=== PATIENT | female | born 1970 | race Caucasian/White ===

== ENCOUNTER → 2021-03-24 18:11 | Emergency (ER) | payer SELFPAY ==
[2021-03-24 18:12] VITALS: BP 155/88; PULSE 80; RESP 18; TEMP 36.2; O2SAT 100; BMI 25.0
--- NOTE | 2021-03-24 18:42 | CT_ITS ---
INDICATION: Left greater than right LQ with peritoneal finding -- IV PO Contrast EXAMINATION: CT Abdomen And Pelvis W/ Contrast Injection TECHNIQUE: Helically acquired images were obtained of the abdomen and pelvis after IV contrast. A radiation dose optimization technique was used for this scan. IV Contrast dosage and agent: Oral and amp; IV Gastrografin and amp; 100mL [id number]-[id number] Oral contrast: Yes. COMPARISON: None. FINDINGS: Visualized lung bases: Unremarkable Liver: Unremarkable Gallbladder: Few small intraluminal stones seen. Spleen: Unremarkable Pancreas: Unremarkable Adrenal Glands: Unremarkable Kidneys: 8 mm nonobstructing stone seen in the left lower pole. Vasculature: Mild scattered aortoiliac atherosclerotic calcifications. GI Tract: Unremarkable Lymphadenopathy: None Peritoneum: No ascites. Bladder: Unremarkable Reproductive organs: Unremarkable Bones/Soft tissues: No suspicious osseous or soft tissue lesions CT/Abdomen/Pelvis WITH Contrast IMPRESSION: No acute abnormalities in the abdomen or pelvis. Cholelithiasis. 8 mm nonobstructing left lower pole renal stone. Electronically Signed: Chavez Eisenberg MD at 21:00 EDT Tel , Service support ,
[2021-03-24 19:10] LABS: Absolute Lymphocyte Count 2.85 X10^3/uL (0.83-4.51); Absolute Neutrophil Count 5.9 X10^3/uL (2.0-7.7); Basophil# 0.04 X10^3/uL; Basophil% 0.4 % (0-1); Eosinophil# 0.15 X10^3/uL; Eosinophils% 1.6 % (0-5); Hematocrit 38.3 % (37-47); Hemoglobin 12.8 g/dL (12.0-15.0); Lymphocyte # 2.85 X10^3/ul (0.83-4.51); Mean Corp Hgb Conc 33.4 g/dL (32-36); Mean Corpuscular Hgb 29.9 pg (27.0-32.0); Mean Corpuscular Volume 89.5 fL (81-99); Mean Platelet Vol. 9.5 fl (6.2-12.0); Monocyte# 0.56 X10^3/uL; Monocyte% 5.9 % (0-10); NRBC Flagged by Analyzer 0 % (0-5); Neutrophil # 5.89 X10^3/uL (2.7-7.7); Neutrophil % 61.9 % (47-70); Platelet Count 260 K/mm3 (150-450); RBC Distribution Width CV 12.7 % (11.6-14.6); RBC Distribution Width SD 41.7 fl (35.1-43.9); Red Blood Count 4.28 M/mm3 (4.2-5.4); White Blood Count 9.5 K/mm3 (4.4-11.0)
[2021-03-24 19:10] LABS: Mucous, Urine 0 SEEN /hpf (<or=2+); Red Blood Cells-Urine 0 SEEN /hpf (0-5)
[2021-03-24 19:13] LABS: Color, Urine Yellow (Yellow); Glucose, Dipstick Normal (Normal); Ketone-Dipstick Negative (Negative); Leukocyte Esterase-Dipstick 500 /ul (Negative); Nitrite-Dipstick Negative (Negative); Occult Blood-Urine 150 /ul (Negative); Protein-Dipstick Negative (Negative); Specific Gravity, Urine 1.005 (1.002-1.030); Urine Bilirubin Dipstick Negative (Negative); Urine Clarity Sl. Cloudy (Clear); Urine Urobilinogen Normal (Normal)
[2021-03-24] MEDS: Ondansetron 4 MG/2 ML Vial IV (19:13)
[2021-03-24] MEDS: Morphine 4 MG/ML Syringe IV (19:13)
[2021-03-24] MEDS: 0.9% Normal Saline 1,000 ML 1000 ML IV (19:13)
[2021-03-24 19:23] LABS: Anion Gap 5 (5-15); BUN 9 mg/dL (7-18); BUN/Creat Ratio 12.5 RATIO (10-20); Calcium,Total 8.8 mg/dL (8.5-10.1); Chloride 108 mmol/L (98-107); Creatinine, Serum 0.72 mg/dL (0.55-1.02); EST Glomerular Filtration Rate 91 mL/min (>60); Est Glom Filt Rate - Afr Amer 110 mL/min (>60); Estimated Creatinine Clearance 89.89 ml/min; Glucose 95 mg/dL (74-106); Potassium 3.6 mmol/L (3.5-5.1); Sodium Level 141 mmol/L (136-145)
[2021-03-24 19:35] LABS: Squamous Epithelial Cells - UA 0-5 SEEN /hpf (5-10); White Blood Cells 10-25 SEEN /hpf (0-5)
[2021-03-24 19:36] LABS: Bacteria 2+ /hpf (None Seen)
[2021-03-24 21:29] VITALS: BP 134/86; PULSE 63; RESP 15; O2SAT 100
--- NOTE | 2021-03-24 22:19 | ED.VIS.GI ---
HPI HPI - GI History of Present Illness Chief Complaint: Abd Pain Detail of Chief Complaint: Patient presents because of right and left lower quadrant abdominal pain Abdominal Pain/Flank Pain Onset: Today Context: Sudden Onset Timing: Continuous Quality: - (Pain) Location: RLQ and LLQ Current Severity: Moderate Maximum Severity: Severe Worsened by: Movement Relieved by: Nothing Nausea/Vomiting/Emesis GI Symptom: Positive for Nausea; Negative for Vomiting Onset: Today Diarrhea/Melena/Hematochezia GI Symptom: Negative for Diarrhea, Melena and Hematochezia Associated Symptoms Associated Symptoms: Negative for Dysuria, Frequency, Hematuria and Urgency Narrative Narrative: Patient is a 50-year-old woman who presents with lower abdominal pain left greater than right. She denies history of diverticulosis or diverticulitis. She has not had a colonoscopy. She denies fever, chills night sweats. She states her appetite has not been good. She denies respiratory symptoms. She denies vaginal bleeding. She is status post hysterectomy. She denies history of trauma. She denies rash. She denies history of renal ureterolithiasis. Prior similar symptoms: No Recent Illness/Hospitalization: No PFSH PFSH Home Medications cephalexin 500 mg PO Q6 #28 capsule 03/24/21 [Rx Last Taken Unknown] Allergy/AdvReac Type Severity Reaction Status Date / Time No Known Allergies Allergy Verified 03/24/21 18:15 Social History Smoking Status: Current some day smoker tobacco type: cigarettes ROS ROS ED Constitutional Constitutional ED: Denies chills, fever(s), subjective or sweats ENT ENT ED: Denies ear pain, rhinorrhea or sore throat Cardiovascular Cardiovascular: Denies chest pain or palpitations Respiratory/Chest Respiratory/Chest: Denies cough, dyspnea or dyspnea on exertion Gastrointestinal Gastrointestinal: Reports abdominal pain and nausea; Denies constipation, diarrhea, melena or vomiting Genitourinary Genitourinary ED: Denies dysuria, hematuria or urinary frequency Musculoskeletal Musculoskeletal: Denies arthralgias, back pain, myalgias or neck pain Integumentary Denies abscess, Abrasions or rash Neurologic Neurologic: Denies headache(s), paresthesias or weakness Endocrine Endocrinology: Denies polydipsia, polyphagia or polyuria Hematologic/Lymphatic Hematologic/Lymphatic: Denies easy bleeding or easy bruising EXAM Physical Exam Const Vital Signs: 03/24/21 18:12 03/24/21 21:29 Temperature 97.2 F L Temperature Source Temporal Pulse Rate 80 63 Respiratory Rate 18 15 Blood Pressure 155/88 H 134/86 H Blood Pressure Mean 110 102 Pulse Ox 100 100 Oxygen Delivery Method Room Air Room Air Positive well nourished and well developed General Appearance ED: well developed and other Patient appears uncomfortable holding her left side. HEENT Reports TM's clear and moist mucous membranes normocephalic and atraumatic Tympanic Membrane ED: Yes TM's clear Eyes PERRL and EOMs intact bilaterally General Eye ED: Negative for pale conjunctiva or scleral icterus Neck no lymphadenopathy, supple and no JVD Resp normal respiratory effort and clear to auscultation bilaterally Cardio regular rate, regular rhythm, S1 normal heart sound, S2 normal heart sound and no murmurs GI no masses; Negative for non-tender or non-distended Auscultation: hypoactive bowel sounds; Negative for normoactive bowel sounds Palpation: soft, tender LLQ and RLQ and guarding LLQ; Negative for rigid, hepatomegaly, splenomegaly, mass, pulsatile mass or rebound tenderness present Back/Spine no CVA tenderness Cervical Spine: Negative for cervical spine tenderness Thoracic Spine / Upper Back: Negative for thoracic spinal tenderness Lumbar Spine / Lower Back: Negative for lumbar spinal tenderness Extremity Negative for full ROM General Extremety ED: Negative for edema or tenderness General Extremity: Negative for edema Neuro CN's II-XII intact bilaterally, moves all extremities and no sensory deficits noted Sensorium / Orientation: alert, oriented to person, oriented to place and oriented to time Motor Exam: strength 5/5 throughout Psych mental status grossly normal and thought process normal Skin no wounds Lesions: no lesions Rashes: no rashes MDM MDM MDM Narrative Medical decision making narrative: Differential diagnosis includes atypical presentation sinusitis, diverticulitis, ureterolithiasis, urinary tract infection, pyelonephritis Lab Data Attestation: I reviewed the patient's lab results. Lab results narrative: CBC is normal. Basic metabolic panel is normal. Urine is consistent with a urinary tract infection. Macro was positive for leukoesterase and blood. Micro was consistent for pyuria with 2+ bacteria and is a good specimen. Lactate is normal. Patient was treated for acute cystitis. Labs: Laboratory Results - last 24 hr 03/24/21 03/24/21 03/24/21 18:50 18:55 18:55 WBC 9.5 RBC 4.28 Hgb 12.8 Hct 38.3 MCV 89.5 MCH 29.9 MCHC 33.4 RDW Std Deviation 41.7 RDW Coeff of Gaetano 12.7 Plt Count 260 MPV 9.5 Immature Gran % (Auto) 0.200 Neut % (Auto) 61.9 Lymph % (Auto) 30.0 [place] % (Auto) 5.9 Eos % (Auto) 1.6 Baso % (Auto) 0.4 Absolute Neuts (auto) 5.9 Absolute Lymphs (auto) 2.85 Nucleated RBC % 0 Sodium 141 Potassium 3.6 Chloride 108 H Carbon Dioxide 28.0 Anion Gap 5 BUN 9 Creatinine 0.72 Estim Creat Clear Calc 89.89 Est GFR (MDRD) Af Amer 110 Est GFR (MDRD) Non-Af 91 BUN/Creatinine Ratio 12.5 Glucose 95 Lactic Acid Calcium 8.8 Urine Color Yellow Urine Clarity Sl. Cloudy Urine pH 7.0 Ur Specific [place] 1.005 Urine Protein Negative Urine Glucose (UA) Normal Urine Ketones Negative Urine Occult Blood 150 H Urine Nitrite Negative Urine Bilirubin Negative Urine Urobilinogen Normal Ur Leukocyte Esterase 500 H Urine RBC 0 SEEN Urine WBC 10-25 SEEN Ur Squamous Epith Cells 0-5 SEEN Urine Bacteria 2+ Urine Mucus 0 SEEN 03/24/21 18:55 WBC RBC Hgb Hct MCV MCH MCHC RDW Std Deviation RDW Coeff of Gaetano Plt Count MPV Immature Gran % (Auto) Neut % (Auto) Lymph % (Auto) [place] % (Auto) Eos % (Auto) Baso % (Auto) Absolute Neuts (auto) Absolute Lymphs (auto) Nucleated RBC % Sodium Potassium Chloride Carbon Dioxide Anion Gap BUN Creatinine Estim Creat Clear Calc Est GFR (MDRD) Af Amer Est GFR (MDRD) Non-Af BUN/Creatinine Ratio Glucose Lactic Acid 1.0 Calcium Urine Color Urine Clarity Urine pH Ur Specific [place] Urine Protein Urine Glucose (UA) Urine Ketones Urine Occult Blood Urine Nitrite Urine Bilirubin Urine Urobilinogen Ur Leukocyte Esterase Urine RBC Urine WBC Ur Squamous Epith Cells Urine Bacteria Urine Mucus Radiography Diagnostic Testing: Radiology Impression Abdomen/Pelvis CT 03/24/21 18:42 IMPRESSION: No acute abnormalities in the abdomen or pelvis. Cholelithiasis. 8 mm nonobstructing left lower pole renal stone. Electronically Signed: Chavez Eisenberg MD at 21:00 EDT Tel , Service support , The CT was reviewed and interpretation was read and agree. Discharge Plan Triage Chief Complaint: Abd Pain ED Provider: George Ulrich Dx/Rx/DC Orders Clinical Impression: Cystitis Instructions: ED CYSTITIS Female Adult Prescriptions: New cephalexin [cephalexin] 500 MG capsule 500 mg PO Q6 Qty: 28 RF: 0 Primary Care Provider: Kofi Moreau Referrals: Kofi Moreau MD [Primary Care Provider] - 3-5 Days if not improving Disposition Disposition: Home, Self Care
[2021-03-24] MEDS: Cephalexin 250 MG Capsule 500 MG PO (22:30)
[2021-03-24 22:31] VITALS: BP 124/83; PULSE 73; RESP 17; O2SAT 100
== END | disposition home or self-care (01) ==
PROVIDERS: Emergency Provider Emergency Medicine; PCP Family Medicine
DX: N30.90 Cystitis, unspecified without hematuria (principal); N20.0 Calculus of kidney; K80.20 Calculus of gallbladder without cholecystitis without obstruction; F17.210 Nicotine dependence, cigarettes, uncomplicated; Z90.710 Acquired absence of both cervix and uterus
CPT/HCPCS: 74177; 80048; 81001; 83605; 85025; 87077; 87086; 87088; 87186; 96361; 96374; 96375; 99284; Q9967; A4216; J2405

== ENCOUNTER 2021-09-03 04:56 | Observation (INO) | payer SELFPAY ==
[2021-09-03] VITALS (9 sets, daily range): BP systolic 93–141; BP diastolic 61–92; PULSE 52–69; RESP 15–16; TEMP 36.3–36.8; O2SAT 100; BMI 26.3; BMI 26.4
--- NOTE | 2021-09-03 05:17 | CT_ITS ---
STUDY: CT ABDOMEN AND PELVIS WITHOUT CONTRAST REASON FOR EXAM: Female, 51 years old. Pain: Kidney stone on left RADIATION DOSAGE (If Supplied By Facility): CTDIvol = ( 6.78 ) mGy, DLP = ( 352.43 ) mGycm TECHNIQUE: Transaxial images were obtained from the dome of the diaphragm to the symphysis pubis without oral contrast, and without intravenous contrast. Sagittal and coronal images were reconstructed. Individualized dose optimization techniques were used for this CT. COMPARISON: None. FINDINGS: The visualized lung bases are unremarkable. The visualized portions of the heart are within normal limits. Normal liver. There is a solitary gallstone. Normal spleen. Normal pancreas. Normal bilateral adrenal glands. Normal right kidney. There is a 7 mm calculus at the left ureteropelvic junction with mild left hydronephrosis. Normal visualized stomach. Normal small intestine. Normal colon. The appendix is visualized and appears normal. Is a large amount of retained stool throughout the colon. Correlate for constipation. There is atherosclerotic calcification of the abdominal aorta, without a demonstrated aneurysm. Normal inferior vena cava. Normal retroperitoneum. Normal urinary bladder. Normal abdominal wall. Normal osseous structures. CT/Abdomen/Pelvis without Cont IMPRESSION: 7 mm calculus within the left ureteropelvic junction causing mild left hydronephrosis. Electronically Signed: Chavez Mason MD at 6:09 EST ,
--- NOTE | 2021-09-03 05:18 | ED.VIS.GI ---
HPI HPI - GI History of Present Illness Chief Complaint: Flank Pain Informant: patient Abdominal Pain/Flank Pain Onset: Days Context: Gradual Onset Timing: Continuous Location: Left Flank Current Severity: Mild Maximum Severity: Moderate Worsened by: Nothing Relieved by: Nothing Nausea/Vomiting/Emesis GI Symptom: Positive for Nausea and Vomiting Onset: Today Severity: Mild Diarrhea/Melena/Hematochezia GI Symptom: Negative for Diarrhea, Melena and Hematochezia Associated Symptoms Associated Symptoms: Negative for Dysuria, Frequency, Hematuria and Urgency Narrative Narrative: 51-year-old female history of kidney stones and prior total hysterectomy. She was vacationing in [place]. Said on Wednesday she started getting left flank pain. She was seen in an emergency department on Wednesday around [facility] and was diagnosed with a 7 mm stone with hydronephrosis. They were unable to admit her so they basically gave her pain medication and told to follow-up with emergency department in her hometown. She states his left flank pain. She has had associated nausea and vomiting. No dysuria. No fever. She has had kidney stones before. She is never needed any of them surgically removed. Unfortunately the prior facility did not send any of her labs or CAT scan results with her. They did start her on Cipro, Toradol, a narcotic pain medication and Flomax. Prior similar symptoms: Yes Recent Illness/Hospitalization: No PFSH PFSH Allergy/AdvReac Type Severity Reaction Status Date / Time No Known Allergies Allergy Verified 09/03/21 05:01 Social History Smoking Status: Current some day smoker tobacco type: cigarettes ROS ROS ED ROS Narrative Left flank pain. Nausea and vomiting. Review of Systems ROS Unobtainable: Denies due to encephalopathy Constitutional Constitutional ED: Denies chills or fever(s) ENT ENT ED: Denies ear pain or sore throat Cardiovascular Cardiovascular: Denies chest pain Respiratory/Chest Respiratory/Chest: Denies cough or dyspnea Gastrointestinal Gastrointestinal: Reports abdominal pain, nausea and vomiting; Denies constipation, diarrhea or melena Genitourinary Genitourinary ED: Denies dysuria or hematuria Musculoskeletal Musculoskeletal: Denies myalgias Integumentary Denies rash Neurologic Neurologic: Denies headache(s) Psychiatric Psychiatric: Denies depression Endocrine Endocrinology: Denies polyuria Hematologic/Lymphatic Hematologic/Lymphatic: Denies easy bruising Allergic/Immunologic Allergic/Immunologic ED: Denies urticaria EXAM Physical Exam Narrative Exam Narrative: 51-year-old female no acute distress. Vital signs stable afebrile. H EENT exam unremarkable. Neck nontender. Lungs clear to auscultation bilaterally. Heart regular rhythm rate about 70 no murmur. Abdomen soft, nontender, nondistended, normal bowel sounds without peritoneal signs. There is no reproducible silvana tenderness. Back nontender. She has flank pain but is not reproducibly tender. Moving all 4 extremities. Nontender no edema. Neurologically awake and alert. Const Vital Signs: 09/03/21 04:57 Temperature 98.2 F Temperature Source Temporal Pulse Rate 69 Respiratory Rate 16 Blood Pressure 141/92 H Blood Pressure Mean 108 Pulse Ox 100 Oxygen Delivery Method Room Air Positive well nourished and well developed; Negative for obese, cachectic, contractures or unkempt General Appearance ED: well developed and NAD; Negative for unkempt, cachectic, contractures or pallor Nutritional Appearance: Negative for cachectic or obese HEENT Reports moist mucous membranes normocephalic and atraumatic Eyes PERRL and EOMs intact bilaterally General Eye ED: Negative for pale conjunctiva or scleral icterus Neck no lymphadenopathy, supple and no JVD General: Negative for tenderness Resp normal respiratory effort and clear to auscultation bilaterally Auscultation: Negative for rales, rhonchi or wheezes Cardio regular rate, regular rhythm, S1 normal heart sound, S2 normal heart sound and no murmurs GI non-tender, non-distended and no masses Inspection: Negative for abdominal distention Auscultation: normoactive bowel sounds Palpation: soft; Negative for tender, guarding, rigid or rebound tenderness present Back/Spine no CVA tenderness General Back: Negative for CVA tenderness Cervical Spine: Negative for cervical spine tenderness Thoracic Spine / Upper Back: Negative for thoracic spinal tenderness Lumbar Spine / Lower Back: Negative for lumbar spinal tenderness Extremity full ROM General Extremety ED: Negative for edema or tenderness General Extremity: Negative for edema Neuro moves all extremities Sensorium / Orientation: alert, oriented to person, oriented to place and oriented to time; Negative for orientation impaired, confused, lethargic or stuporous Motor Exam: strength 5/5 throughout Psych mental status grossly normal and thought process normal Appearance: Negative for unkempt Attitude: No agitated Mood & Affect: Negative for depressed, anxious or tearful Skin no wounds General Skin Exam: Negative for jaundice or pallor Lesions: no lesions Rashes: no rashes MDM MDM MDM Narrative Medical decision making narrative: Middle-aged female left flank pain from a kidney stone that was reportedly diagnosed in [place] in the last 48 hours. Having recurrent pain. CAT scan labs are being obtained. She will be treated with Dilaudid, Zofran and Toradol. Repeat exam patient is doing well at 6:21 AM. Pain is much improved after the medications. She had I went over all of her test results. Her pain initially started Wednesday at noon this is a very proximal stone and 7 mm I do not think is going to pass. I discussed with her options of outpatient follow-up with urology versus inpatient. She states I just wanted out. I will speak to urology entry level installation technician to determine a plan. Lab Data Attestation: I reviewed the patient's lab results. Lab results narrative: CBC unremarkable. White count 9.1. H&H of 12 and 36. Normal platelets. Chemistries unremarkable gap of 5 BUN of 14 creatinine of 1. Glucose 86. UA showed no whites or reds. 1+ bacteria. On the macro there was 50 occult blood no nitrates. No infection. CT flank shows a left 7 mm UPJ stone with mild hydronephrosis. Labs: Laboratory Results - last 24 hr 09/03/21 09/03/21 09/03/21 05:00 05:00 05:25 WBC 9.1 RBC 4.03 L Hgb 12.1 Hct 36.3 L MCV 90.1 MCH 30.0 MCHC 33.3 RDW Std Deviation 42.5 RDW Coeff of Gaetano 12.8 Plt Count 231 MPV 9.8 Immature Gran % (Auto) 0.200 Neut % (Auto) 73.3 H Lymph % (Auto) 16.8 L [place] % (Auto) 6.9 Eos % (Auto) 2.5 Baso % (Auto) 0.3 Absolute Neuts (auto) 6.7 Absolute Lymphs (auto) 1.54 Nucleated RBC % 0 Sodium 140 Potassium 4.0 Chloride 109 H Carbon Dioxide 26.0 Anion Gap 5 BUN 14 Creatinine 1.06 H Estim Creat Clear Calc 60.37 Est GFR (MDRD) Af Amer 70 Est GFR (MDRD) Non-Af 58 L BUN/Creatinine Ratio 13.2 Glucose 86 Calcium 8.5 Urine Color Yellow Urine Clarity Clear Urine pH 6.0 Ur Specific [place] 1.015 Urine Protein Negative Urine Glucose (UA) Normal Urine Ketones Negative Urine Occult Blood 50 H Urine Nitrite Negative Urine Bilirubin Negative Urine Urobilinogen Normal Ur Leukocyte Esterase Negative Urine RBC 0-5 SEEN Urine WBC 0-5 SEEN Ur Squamous Epith Cells 0-5 SEEN Urine Bacteria 1+ Urine Mucus 0 SEEN Radiography Diagnostic Testing: Clinical Impression(s) from Imaging Studies Abdomen/Pelvis CT 09/03/21 05:17 IMPRESSION: 7 mm calculus within the left ureteropelvic junction causing mild left hydronephrosis. Electronically Signed: Chavez Mason MD at 6:09 EST Reading Location ID and State: [facility] / [place] Tel , Service support , Discharge Plan Triage Chief Complaint: Flank Pain ED Provider: Edilberto Ivan Dx/Rx/DC Orders Clinical Impression: Calculus of proximal left ureter, Acute flank pain, Hydronephrosis Primary Care Provider: Care Physician,No Primary Referrals: Care Physician,No Primary [Primary Care Provider] - Disposition Disposition: Acute Care [facility]
[2021-09-03 05:27] LABS: Absolute Lymphocyte Count 1.54 X10^3/uL (0.83-4.51); Absolute Neutrophil Count 6.7 X10^3/uL (2.0-7.7); Basophil# 0.03 X10^3/uL; Basophil% 0.3 % (0-1); Eosinophil# 0.23 X10^3/uL; Eosinophils% 2.5 % (0-5); Hematocrit 36.3 % (37-47); Hemoglobin 12.1 g/dL (12.0-15.0); Lymphocyte # 1.54 X10^3/ul (0.83-4.51); Lymphocyte % 16.8 % (19-41); Mean Corp Hgb Conc 33.3 g/dL (32-36); Mean Corpuscular Volume 90.1 fL (81-99); Mean Platelet Vol. 9.8 fl (6.2-12.0); Monocyte# 0.63 X10^3/uL; Monocyte% 6.9 % (0-10); NRBC Flagged by Analyzer 0 % (0-5); Neutrophil # 6.69 X10^3/uL (2.7-7.7); Neutrophil % 73.3 % (47-70); Platelet Count 231 K/mm3 (150-450); RBC Distribution Width CV 12.8 % (11.6-14.6); RBC Distribution Width SD 42.5 fl (35.1-43.9); Red Blood Count 4.03 M/mm3 (4.2-5.4); White Blood Count 9.1 K/mm3 (4.4-11.0)
[2021-09-03 05:30] LABS: Mucous, Urine 0 SEEN /hpf (<or=2+)
[2021-09-03 05:31] LABS: Color, Urine Yellow (Yellow); Glucose, Dipstick Normal (Normal); Ketone-Dipstick Negative (Negative); Leukocyte Esterase-Dipstick Negative /ul (Negative); Nitrite-Dipstick Negative (Negative); Occult Blood-Urine 50 /ul (Negative); Protein-Dipstick Negative (Negative); Specific Gravity, Urine 1.015 (1.002-1.030); Urine Bilirubin Dipstick Negative (Negative); Urine Clarity Clear (Clear); Urine Urobilinogen Normal (Normal)
[2021-09-03] MEDS: Ketorolac 15 MG/ML Vial IV (05:35)
[2021-09-03] MEDS: Ondansetron 4 MG/2 ML Vial IV (05:35)
[2021-09-03] MEDS: HYDROmorphone 1 MG/ML Syringe IV (05:35)
[2021-09-03 05:39] LABS: Bacteria 1+ /hpf (None Seen); Red Blood Cells-Urine 0-5 SEEN /hpf (0-5); Squamous Epithelial Cells - UA 0-5 SEEN /hpf (5-10); White Blood Cells 0-5 SEEN /hpf (0-5)
[2021-09-03 05:42] LABS: Anion Gap 5 (5-15); BUN 14 mg/dL (7-18); BUN/Creat Ratio 13.2 RATIO (10-20); Calcium,Total 8.5 mg/dL (8.5-10.1); Chloride 109 mmol/L (98-107); Creatinine, Serum 1.06 mg/dL (0.55-1.02); EST Glomerular Filtration Rate 58 mL/min (>60); Est Glom Filt Rate - Afr Amer 70 mL/min (>60); Estimated Creatinine Clearance 60.37 ml/min; Glucose 86 mg/dL (74-106); Sodium Level 140 mmol/L (136-145)
--- NOTE | 2021-09-03 07:41 | PCM.HP.STD ---
HPI - General HPI Narrative HOWIE BHAT, is a 51 F who presents with an obstructing 7 - 8 mm stone in the proximal left ureter and severe pain she is now back in the emergency room for the second time so she will be admitted to the hospital for stent placement. PFSH Allergy/AdvReac Type Severity Reaction Status Date / Time No Known Allergies Allergy Verified 09/03/21 05:01 Social History Smoking Status: Current some day smoker tobacco type: cigarettes ROS Constitutional Constitutional: Denies chills, fever(s) or malaise Eyes Eyes: Denies blurry vision or change in vision ENT HEENT: Reports none Cardiovascular Cardiovascular: Denies chest pain or palpitations Respiratory/Chest Respiratory/Chest: Denies cough or shortness of breath with exertion Gastrointestinal Gastrointestinal: Denies abdominal pain, constipation or diarrhea Musculoskeletal Musculoskeletal: Denies back pain, joint stiffness or joint swelling Integumentary Integumentary: Denies dry skin, jaundice, lesions or rash Neurologic Neurologic: Denies confusion, syncope or weakness Psychiatric Psychiatric: Reports none; Denies anxiety or depression Endocrine Endocrinology: Denies excessive sweating, fatigue or flushing Hematologic/Lymphatic Hematologic/Lymphatic: Denies anemia, easy bleeding or easy bruising Vital Signs Vital Signs Vital Signs: 09/03/21 04:57 09/03/21 07:30 Temperature 98.2 F 98.2 F Temperature Source Temporal Temporal Pulse Rate 69 69 Respiratory Rate 16 16 Blood Pressure 141/92 H 141/92 H Blood Pressure Mean 108 108 Pulse Ox 100 100 Oxygen Delivery Method Room Air Room Air Weight Weight: 76.2 kg Body Mass Index (BMI) 26.3 Physical Exam Const alert and oriented x3 General Appearance: cooperative HEENT normocephalic, head/scalp atraumatic, EAC's normal and TM's normal bilaterally Eyes PERRL and EOMs intact bilaterally Pupil: sluggish Neck no lymphadenopathy, supple and no JVD General: trachea midline Lymph Lymphatic: no lymphadenopathy noted, lymphedema and lymphadenopathy Resp normal respiratory effort, normal air movement and clear to auscultation bilaterally Cardio regular rate, regular rhythm and peripheral pulses 2+ throughout GI soft to palpation, non-tender and non-distended Extremity normal capillary refill and no clubbing, cyanosis or edema General Extremity: no tenderness to palpation of joints or extremities Skin no rashes or lesions noted General Skin Exam: turgor normal Lesions: no lesions Rashes: no rashes Neuro CN's II-XII intact bilaterally Speech: speech normal Motor Exam: strength 5/5 throughout; Negative for general weakness Psych thought process normal, cooperative and affect normal Appearance: appropriate Results Lab / Micro Data Result Diagrams: 09/03/21 05:00 09/03/21 05:00 Labs: Laboratory Results - last 24 hr 09/03/21 05:00: WBC 9.1, RBC 4.03 L, Hgb 12.1, Hct 36.3 L, MCV 90.1, MCH 30.0, MCHC 33.3, RDW Std Deviation 42.5, RDW Coeff of Gaetano 12.8, Plt Count 231, MPV 9.8, Immature Gran % (Auto) 0.200, Neut % (Auto) 73.3 H, Lymph % (Auto) 16.8 L, [place] % (Auto) 6.9, Eos % (Auto) 2.5, Baso % (Auto) 0.3, Absolute Neuts (auto) 6.7, Absolute Lymphs (auto) 1.54, Nucleated RBC % 0 09/03/21 05:00: Sodium 140, Potassium 4.0, Chloride 109 H, Carbon Dioxide 26.0, Anion Gap 5, BUN 14, Creatinine 1.06 H, Estim Creat Clear Calc 60.37, Est GFR (MDRD) Af Amer 70, Est GFR (MDRD) Non-Af 58 L, BUN/Creatinine Ratio 13.2, Glucose 86, Calcium 8.5 09/03/21 05:25: Urine Color Yellow, Urine Clarity Clear, Urine pH 6.0, Ur Specific [place] 1.015, Urine Protein Negative, Urine Glucose (UA) Normal, Urine Ketones Negative, Urine Occult Blood 50 H, Urine Nitrite Negative, Urine Bilirubin Negative, Urine Urobilinogen Normal, Ur Leukocyte Esterase Negative, Urine RBC 0-5 SEEN, Urine WBC 0-5 SEEN, Ur Squamous Epith Cells 0-5 SEEN, Urine Bacteria 1+, Urine Mucus 0 SEEN Radiology Impression Abdomen/Pelvis CT 09/03/21 05:17 IMPRESSION: 7 mm calculus within the left ureteropelvic junction causing mild left hydronephrosis. Electronically Signed: Chavez Mason MD at 6:09 EST , Assessment & Plan Assessment/Plan (1) Calculus of proximal left ureter: PLAN: Plan for stent placement today. (2) Acute flank pain: PLAN: Control pain with medications (3) Hydronephrosis: PLAN: Hydronephrosis should resolve after stent.
[2021-09-03] MEDS: 0.9% Normal Saline 1,000 ML 150 ML IV ×2 (08:48→15:55)
--- NOTE | 2021-09-03 14:20 | NURSING ---
Pt to surgery via OR tech
--- NOTE | 2021-09-03 15:44 | OP.PCM_ITS ---
Report of Operation Date of Procedure: 09/03/21 Pre-Operative Diagnosis: Left obstructing kidney stone Post-Operative Diagnosis: The same Surgery/Procedure Performed:: Cystoscopy and left stent placement Description of Surgical Findings:: Patient was taken back to the operating room after induction of general anesthesia, the patient was placed in dorsolithotomy position. The urethra and genitals were prepped and draped in usual sterile fashion. Using a 21 [place]kin[place] rigid cystourethroscope the entire length of the urethra was normal then went into the bladder. Identified the trigone the left and right ureteral orifice. I then cannulated the left orifice and advanced a wire up into the kidney. I then backloaded a 5 Burkinan open ended catheter over the wire and injected contrast to delineate the anatomy. I advanced a wire up i nto the kidney and over the 0.038 glidewire I advanced a 6 [place] by 26 cm double pigtail stent. I then pulled the 0.038 Glidewire off and the stent coiled in the kidney bladder good position. The bladder was then drained. We confirmed the position of the stent by fluoroscopy. Patient anesthetic was reversed and was taken back to the PACU in good condition. Surgeon: lavelle Type of Anesthesia: General Drains: stent left side Admit VTE Documentation VTE Present on Admission: No VTE Mechan Device Prophylaxis: SCD's VTE Pharm Prophylaxis ordered?: No
--- NOTE | 2021-09-03 15:44 | PCM.DC ---
Discharge Instructions Diet Discharge Diet: No restrictions Dressing / Incision Call your doctor if your incision/area has: Continuous Slow Oozing, Increased Pain/ Swelling, Increased Redness and Foul Smelling Discharge Call your doctor if you observe: Fever of 101 or Higher, Numbness or Tingling, Shortness of breath, Dizziness, Calf discomfort and Uncontrolled pain Follow Up Care Please Follow Up With: Oskar Covarrubias MD Test Results: Test results from this visit will be discussed in further detail at your follow-up appointment, if applicable. call [phone] to schedule surgery for shockwave lithotripsy Discharge Plan Admission Admit Date/Time: 09/03/21 07:37 Primary Reason for Your Visit: left kidney stone Attending Provider: Oskar Covarrubias Primary Care Provider: Care Physician,No Primary Instructions Patient Instructions: Having a Ureteral Stent, Kidney Stone (Urine) Discharge Orders/Prescriptions Prescriptions: New ciprofloxacin HCl [Cipro] 500 mg tablet 500 mg PO BID Qty: 6 RF: 0 oxycodone-acetaminophen 5-325 mg tablet 1 tab PO Q6H PRN (Reason: pain) 7 Days Qty: 20 RF: 0 Referrals / Follow Up: Oskar Covarrubias MD [STAFF PHYSICIAN] - Care Physician,No Primary [Primary Care Provider] - Disposition Discharge Orders: Discharge Patient (Routine); Ordered 09/03/21 Ordered By: Dr. Oskar Covarrubias
== END 2021-09-03 15:43 ==
LOC: ED 07:36 → PCU 08:03
PROVIDERS: Admitting Provider Urology; Emergency Provider Emergency Medicine; Visit Provider Urology
PROC: (CPT 52332; principal; 2021-09-03 14:20)
DX: N13.2 Hydronephrosis with renal and ureteral calculous obstruction (principal); F17.210 Nicotine dependence, cigarettes, uncomplicated
CPT/HCPCS: 52332; 74176; 76000; 80048; 81001; 85025; 87426; 96374; 96375; 97802; 99218; 99283; 99406; J7030; A4216; C1769; C2617; G0378; J2405

== ENCOUNTER 2021-10-08 05:47 | Day surgery (SDC) | payer SELFPAY ==
--- NOTE | 2021-10-08 05:59 | RAD_ITS ---
EXAM: XR ABDOMEN, 1 VIEW : 1970 CLINICAL INDICATION: preop TECHNIQUE: Frontal supine view of the abdomen/pelvis. This report was created using [employer] report generation technology. COMPARISON: None. FINDINGS: LOWER THORAX: No acute pathology. GASTROINTESTINAL TRACT: Moderate amount of stool in the colon. Non-obstructive. No bowel or stomach distention. ORGANS: There is a 7 mm stone in the expected location of the lower pole collecting system of the left kidney. No organomegaly. BONES/JOINTS: No acute pathology. SOFT TISSUES: No acute pathology. TUBES, LINES AND DEVICES: Left double-J ureteral stent in place. RAD/Abdomen Single View IMPRESSION: 1. There is a 7 mm stone in the expected location of the lower pole collecting system of the left kidney. 2. Left double-J ureteral stent in place. No stones identified along the course of the stent. at 0622 Reported and signed by: Stephane Middleton MD Electronically Signed: Stephane Middleton MD at 6:22 EST ,
[2021-10-08 06:33] VITALS: BP 108/60; PULSE 61; RESP 16; TEMP 36.9; O2SAT 100; BMI 26.6
[2021-10-08] MEDS: Lactated Ringers 1,000 ML 15 ML IV (06:45)
[2021-10-08] MEDS: Cefazolin 2 GM in 0.9% Normal Saline 100 ML IV (08:00)
--- NOTE | 2021-10-08 08:12 | DCINST_ITS ---
Discharge Instructions Diet Discharge Diet: No restrictions Activity Discharge Activity: Return to Normal Activity and May Not Drive (while taking narcotic pain medications.) Dressing / Incision Call your doctor if you observe: Fever of 101 or Higher Follow Up Care Please Follow Up With: Oskar Covarrubias MD When: Call [phone] for an appointment Test Results: Test results from this visit will be discussed in further detail at your follow-up appointment, if applicable. Discharge Plan Admission Primary Reason for Your Visit: kidney stone Attending Provider: Oskar Covarrubias Primary Care Provider: Care PhysicianBlanca Primary Discharge Orders/Prescriptions Prescriptions: New ciprofloxacin HCl [Cipro] 500 mg tablet 500 mg PO BID Qty: 6 RF: 0 oxycodone-acetaminophen 5-325 mg tablet 1 tab PO Q6H PRN (Reason: pain) 7 Days Qty: 14 RF: 0 Other Ambulatory Orders: COVID 19 AG RAPID (RN COLLECT) (Routine) Timeframe: [id number] Facility: [facility] - Location: Laboratory Ordered By: Dana Perez Referrals / Follow Up: Oskar Covarrubias MD [STAFF PHYSICIAN] - Care Physician,No Primary [Primary Care Provider] - Disposition Disposition (needs filled in before D/C Order can be placed): Home, Self Care
--- NOTE | 2021-10-08 08:12 | PCM.HP.STD ---
HPI - General HPI Narrative HOWIE BHAT, is a 51 F who presents for treatment of left kidney stone with ESWL PFSH Medical History History of edema Kidney stone Leg cramps Smoker Home Medications ciprofloxacin HCl [Cipro] 500 mg PO BID #6 tab 10/08/21 [Rx Last Taken Unknown] oxycodone-acetaminophen 1 tab PO Q6H PRN 7 Days #14 tab 10/08/21 [Rx Last Taken Unknown] Allergy/AdvReac Type Severity Reaction Status Date / Time No Known Allergies Allergy Verified 09/22/21 16:16 Surgical History (Updated 09/22/21 @ 16:18 by Naomie Love) History of cystoscopy History of hysterectomy Social History Smoking Status: Current some day smoker tobacco type: cigarettes Vital Signs Vital Signs Vital Signs: 10/08/21 06:33 Temperature 98.4 F Temperature Source Temporal Pulse Rate 61 Respiratory Rate 16 Respiratory Pattern Normal Blood Pressure 108/60 Blood Pressure Mean 76 Blood Pressure Source Monitor Blood Pressure Position Semi-Fowlers Blood Pressure Location Left Arm Pulse Ox 100 Weight Weight: 77 kg Body Mass Index (BMI) 26.6 Results Lab / Micro Data Micro: Microbiology 10/08/21 06:20 Interface Orders SARS-CoV-2 Antigen (Rapid) - Final Radiology Impression KUB X-Ray 10/08/21 05:59 IMPRESSION: 1. There is a 7 mm stone in the expected location of the lower pole collecting system of the left kidney. 2. Left double-J ureteral stent in place. No stones identified along the course of the stent. at 0622 Reported and signed by: Stephane Middleton MD Electronically Signed: Stephane Middleton MD at 6:22 EST ,
--- NOTE | 2021-10-08 08:46 | OP.PCM_ITS ---
Report of Operation Date of Procedure: 10/08/21 Pre-Operative Diagnosis: Left kidney stone status post stent Post-Operative Diagnosis: Same Surgery/Procedure Performed:: Left extracorporeal shockwave lithotripsy and cystoscopy and stent removal Description of Surgical Findings:: Patient presents to the hospital for treatment of a kidney stone with shockwave lithotripsy. In the preoperative area and x-ray was done to confirm the location of the stone. The x-ray was reviewed and the stone location was reviewed. In the preoperative setting I spoke with the patient regarding the treatment of the stone how the treatment would be conducted and the expectations after surgery. The patient understands there is a risk of bleeding and infection. Also discussed the very rare risk of hematoma or damage to the kidney. We also discussed the risk that the shockwave machine will fail to break the stone adequately and that the patient may need other surgical procedures. We also discussed the possibility that the patient may need a stent after the procedure. After reviewing the procedure with the patient, the patient is signed the consent form all the patient's questions were addressed and was taken back to the operating room for treatment of a kidney stone. Patient was taken back to the operating room, patient was identified by the nursing staff, we identified the side of the treatment and the patient side of treatment had been marked by my initials. The patient underwent general anesthetic and was placed supine on the lithotripter table. We then used fluoroscopy to identify the stone on the left side. We then positioned the patient under the lithotripter and we used triangulation technique to identify the location of the stone and then we made sure that the stone was engaged in the F2 focal point of F2 Donier lithoprior machine. Once the patient was positioned appropriately and the stone was identified and placed in the F2 focal point of the lithotripter machine we then proceeded with shockwave lithotripsy. In the beginning the shockwave was delivered at a rate of 90 shocks per minute, we monitor the EKG for any ectopy. The power was slowly increased to 5 kV and subsequently at the 7 kV. We then proceeded with the treatment we move the therapy had around during the treatment to make sure the stone stayed in the F2 focal point during the entire treatment and after 3000 shockwaves were delivered to the stone under fluoroscopic guidance the treatment was completed. The patient's urethra and genitals were prepped and draped in usual sterile fashion. I went into the bladder with a 21 [place] rigid cystourethroscope. I grabbed the stent emanating from the left ureteral orifice and then gently remove the stent from the bladder. I then drained the patient's bladder. The patient was given instructions to call the office to make an a follow-up appointment with an xray to evaluate the success of the treatment, pateint understands that its possible the stones may need another procedure.At this point the patient's anesthetic was reversed patient was extubated and taken back to the PACU in stable condition. Surgeon: lavelle Type of Anesthesia: General Drains: stent removed Admit VTE Documentation VTE Present on Admission: No VTE Mechan Device Prophylaxis: SCD's VTE Pharm Prophylaxis ordered?: No
[2021-10-08 08:58] VITALS: BP 108/60; BP 138/87; PULSE 56; RESP 16; TEMP 36.5; O2SAT 100
[2021-10-08 09:15] VITALS: BP 108/60; BP 138/68; PULSE 54; RESP 16; O2SAT 100
[2021-10-08] MEDS: Ketorolac 30 MG/ML Syringe IV (09:21)
[2021-10-08 09:30] VITALS: BP 108/60; BP 126/69; PULSE 60; RESP 16; O2SAT 100
[2021-10-08 09:45] VITALS: BP 108/60; BP 124/71; PULSE 68; RESP 16; TEMP 36.3; O2SAT 100
[2021-10-08 11:01] VITALS: BP 101/64; BP 108/60; PULSE 74; RESP 14; TEMP 36.7; O2SAT 98
== END 2021-10-08 23:59 | disposition home or self-care (01) ==
LOC: SDC 05:53 → AC 05:55
PROVIDERS: Referring Provider Urology; Visit Provider Urology
PROC: (CPT 50590; principal; 2021-10-08 07:50)
DX: N20.0 Calculus of kidney (principal); F17.210 Nicotine dependence, cigarettes, uncomplicated; Z20.822 Contact with and (suspected) exposure to COVID-19
CPT/HCPCS: 50590; 52310; 00873; 74018; 87426; J7120; J2405